=== PATIENT | male | born 1980 | race Caucasian/White ===

== ENCOUNTER 2017-11-11 19:15 | Emergency (ER) | payer OTHER ==
[~2017-11-11] VITALS: Ht 185.4 cm; Wt 98.1 kg
[2017-11-11 19:24] VITALS: BP 143/90; PULSE 84; RESP 18; TEMP 97.8; O2SAT 97
[2017-11-11] MEDS ORDERED: ALBU0.63 NEB (19:31)
[2017-11-11] MEDS ORDERED: VENTAER INH (19:31)
[2017-11-11] MEDS ORDERED: SYMB80AE INH (19:31)
== END 2017-11-11 20:02 | disposition left against medical advice (07) ==
LOC: PHEFT 19:15
DX: T78.40XA Allergy, unspecified, initial encounter (principal); Z53.21 Procedure and treatment not carried out due to patient leaving prior to being seen by health care provider
CPT/HCPCS: 99281